=== PATIENT | female | born 1975 | race Caucasian/White ===

== ENCOUNTER → 2016-07-19 | Outpatient (CLI) | payer OTHER ==
--- NOTE | 2016-07-22 16:11 | SS ---
ADMIT: 07/19/2016 RM/LOC: [facility] MR#: [id number] [address] [place] [id number] EVELINE BROWN [address] [place] [id number] Sleep Study SEX: F AGE: 41 : 1975 STUDY DATE: 07/19/2016 REFERRING PHYSICIAN: Santhosh Bennett MD CLINICAL HISTORY: A 41-year-old female, body mass 31.6, 60 inches, 160 pounds, known history of central sleep apnea, in the sleep lab for CPAP/BiPAP titration. TECHNICAL DESCRIPTION: CPAP/BiPAP titration performed on night of 07/19/2016, attended by trained instructional design technologist. TITRATION FINDINGS: TITRATION DESCRIPTION: The patient was initially started here on the CPAP from 5 cm to 13 cm, then was started on BiPAP from 15/ with a backup rate of 14. A small nasal mask was used. SLEEP: Total time in bed is 425.5 minutes, total sleep time 308 minutes, sleep efficiency 72.4%. 49% hours spent in stage II sleep. No REM sleep was seen. BREATHING: Persistent central apneas were seen while on CPAP therapy, especially in supine position. Central apnea-hypopnea index of 13.6. During the study, there were 67 central apneas noted and 3 obstructive hypopneas noted. The patient failed CPAP because of persistent central apneas. On BiPAP, 16/01 with a backup rate of 14, the patient appeared to have good resolution of central events. OXYGEN SATURATION: Mean sleeping oxygen 96%. Cardiac average 60 beats per minute. ADMIT: 07/19/2016 RM/LOC: [facility] MR#: [id number] [place] [phone] VEELINE BROWN Joseph [address] [place] [address] PATRICIA MCNALLY [id number] Sleep Study SEX: F AGE: 41 : 1975 MOVEMENT/POSITION: During the study, patient slept in supine lateral position with no significant leg movements. IMPRESSION AND PLAN: CPAP/BiPAP titration reveals that the patient failed CPAP because of ongoing central events. Central apnea-hypopnea index of 13.6. On BiPAP at 15/9 with a backup rate of 14, good resolution of central events were noted. Recommended using BiPAP at 15/9 with backup rate of 14 with mask as mentioned above. Recommend losing weight, avoiding sedatives, alcohol. Refrain from driving if excessively sleepy. Compliance followup is recommended if central apneas persist on BiPAP, then adaptive servo- ventilation may be considered. Misha Lazcano MD/ maryana JOB #: [id number] CC: Misha Lazcano MD, Attending Physician Misha Lazcano MD, Family Physician
== END | disposition home or self-care (01) ==
LOC: RESC 20:21
DX: G47.33 Obstructive sleep apnea (adult) (pediatric) (principal)

== ENCOUNTER → 2016-09-19 | Outpatient (CLI) | payer OTHER | END | disposition home or self-care (01) | LOC: RAD.S 09:40 | DX: Z12.31 Encounter for screening mammogram for malignant neoplasm of breast (principal); R92.0 Mammographic microcalcification found on diagnostic imaging of breast ==

== ENCOUNTER → 2016-09-26 | Outpatient (CLI) | payer OTHER | END | disposition home or self-care (01) | LOC: RAD.S 09:30 | DX: R13.10 Dysphagia, unspecified (principal) ==

== ENCOUNTER 2016-09-29 06:43 | Emergency (ER) | payer OTHER ==
--- NOTE | 2016-10-19 15:42 | ER ---
ADMIT: 09/29/2016 RM/LOC: ER [facility] MR#: [id number] [address] [facility] [id number] EVELINE BROWN [address] [place] [id number] Emergency Room Report SEX: F AGE: 41 : 1975 DATE: 09/29/2016 A 41-year-old female comes to the emergency department with vomiting x1 episode around 5:30 this morning. She has had no recurrence of it. Denies any pain. No fever or chills. See T sheet for remainder history and physical. The patient is diagnosed with gastroesophageal reflux disease, and vomiting. She is given a prescription for sucralfate. I have instructed to follow up this week with her primary doctor. Vinnie Herrmann MD/ maryana JOB #: [id number] CC: Liam Hicks MD, Attending Physician Jonathan Houser MD, Family Physician
== END 2016-09-29 08:25 | disposition home or self-care (01) ==
LOC: ER 06:43
DX: K21.9 Gastro-esophageal reflux disease without esophagitis (principal); R11.10 Vomiting, unspecified; F41.9 Anxiety disorder, unspecified; Z79.899 Other long term (current) drug therapy

== ENCOUNTER → 2016-10-01 | Outpatient (CLI) | payer OTHER | END | disposition home or self-care (01) | LOC: RAD.S 09-22 08:47 | DX: R92.0 Mammographic microcalcification found on diagnostic imaging of breast (principal) ==